=== PATIENT | male | born 1975 | race Two or more races ===

== ENCOUNTER → 2017-06-02 | Day surgery (SDC) | payer SELFPAY ==
[~2017-06-02] VITALS: Ht 170.2 cm; Wt 60.9 kg
[~2017-06-02] MED LIST: COREG 3.1253.125 MG PO; DILTIAZEM ER120 MG PO; FEOSOL325 MG PO; MULTI VITAMIN1 EACH PO; NORCO 5-325 TA1 EACH PO; PRILOSEC20 MG PO; STOOL SOFTENER100 M1 PO
--- NOTE | ~2017-06-02 | OR ---
PATIENT'S NAME: JUSTA [facility] AGE: 42 Y [address] ROOM: [place] [id number] LOCATION: [facility] [place] ADMIT DATE: 06/02/2017 OR/Procedure Report DISCHARGE DATE: FAMILY PHYSICIAN: PHYSICIAN, NO ATTENDING PHYSICIAN: NIKHIL STEVENS SURGEON: Nikhil Stevens MD CONCRETE POURER: DATE OF PROCEDURE: 06/02/2017 PREOPERATIVE DIAGNOSIS: End-stage renal disease. POSTOPERATIVE DIAGNOSIS: End-stage renal disease. PROCEDURE: Left arm brachiocephalic AV fistula. OPTICIAN APPRENTICE DISPENSING: Lisha Lopez. ANESTHESIA: General. ESTIMATED BLOOD LOSS: 10 mL. OPERATIVE FINDINGS: Good thrill and bruit in the fistula. Strong radial and ulnar signal at the end of the case. PROCEDURE: The patient was brought to the operating room, placed supine on the operating table, placed under general anesthesia, prepped and draped in a sterile manner. Preoperative time-out was performed. The patient received preoperative antibiotics. We made a standard incision 2 cm proximal to the antecubital fossa, dissected down the fascia, incised the fascia in a longitudinal manner. Dissected out the brachial artery. We then dissected out the cephalic vein in a 360-degree fashion. We ligated and transected it. We then gave 5000 units of heparin. We clamped proximally and distally on the artery, made an arteriotomy size of 4 mm. We then did a standard 6-0 Prolene anastomosis from the vein to the artery. We removed the clamps. There was excellent flow into the vein. There was a strong radial and ulnar signal. Heparin was used to reverse protamine. Thrombin was used locally on the wound. Deep layers were closed with 2-0 and 3-0 Vicryl. Skin was closed with running 4-0 Monocryl. The patient tolerated the procedure well, transferred to recovery room and home later that day. NIKHIL STEVENS MD PATIENT'S NAME: JUSTA [facility] AGE: 42 Y [address] ROOM: [place] [id number] LOCATION: [facility] [place] ADMIT DATE: 06/02/2017 OR/Procedure Report DISCHARGE DATE: FAMILY PHYSICIAN: JASPREET QIU ATTENDING PHYSICIAN: NIKHIL STEVENS FKM/modl /[id number] d: 06/02/172012 t: 06/07/17 1544, OPERATIVE SUMMARY
[2017-06-02 07:20] LABS: BASOPHIL # 0.1 K/uL (0.0-0.2); EOSINOPHIL # 0.2 K/uL (0.0-0.5); EOSINOPHIL % 1.8 %; HEMATOCRIT 23.5 % (37.0-53.0); HEMOGLOBIN 8.5 g/dL (12.0-17.0); IMMATURE GRANULOCYTE # 0.1 K/uL (0.0-0.3); IMMATURE GRANULOCYTE % 0.6 %; LYMPHOCYTE # 1.6 K/uL (0.8-4.0); LYMPHOCYTE % 17.3 %; MCH 30.8 pg (27.0-34.0); MCHC 36.2 gm/dL (32.0-36.5); MCV 85.1 fl (83.0-98.0); MONOCYTE # 0.7 K/uL (0.0-1.0); MONOCYTE % 7.3 %; MPV 8.8 fl (9.4-12.4); NEUTROPHIL # (ANC) 6.5 K/uL (1.4-9.0); NRBC % 0 /100WBC (0-0.00); PLATELET COUNT 174 K/uL (150-450); RBC 2.76 M/uL (4.00-6.00); RDW-CV 14.7 % (11.9-14.6)
[2017-06-02 07:36] LABS: ALBUMIN 2.5 gm/dL (3.5-5.0); CALCIUM 7.8 mg/dL (8.5-10.5); POTASSIUM 4.6 mMol/L (3.7-5.1); TOTAL BILIRUBIN 0.5 mg/dL (0.0-1.5); TOTAL PROTEIN 7.6 g/dL (6.0-8.4)
[2017-06-02 07:37] LABS: ANION GAP 16.6 (10.0-19.0)
== END | disposition disaster alternative care site (69) ==
LOC: GPOC 06-01 14:00 → GSDC 06:14 → GPOC 06:30
PROVIDERS: Surgery Vascular Surgery
DX: I12.0 Hypertensive chronic kidney disease with stage 5 chronic kidney disease or end stage renal disease (principal); N18.6 End stage renal disease; K21.9 Gastro-esophageal reflux disease without esophagitis; Z87.891 Personal history of nicotine dependence; Z79.899 Other long term (current) drug therapy; Z88.8 Allergy status to other drugs, medicaments and biological substances
CPT/HCPCS: J0690; J1644; J2001; J2405; J2720; J2765; J7030